=== PATIENT | female | born 1990 | race Caucasian/White ===

== ENCOUNTER 2023-02-10 19:56 | Emergency (ER) | payer OTHER ==
[~2023-02-10] VITALS: Ht 177.8 cm; Wt 79.8 kg
[2023-02-10] MEDS ORDERED: FAMO10TA41 PO (20:10)
[2023-02-10] MEDS ORDERED: DULO20CA PO (20:10)
[2023-02-10] MEDS ORDERED: SEMA1PEN SQ (20:10)
[2023-02-10] MEDS ORDERED: ARIP2TAB3 PO (20:10)
[2023-02-10] MEDS ORDERED: PANT40TA2 PO (20:10)
[2023-02-10] MEDS ORDERED: HYDROMORPHONE 1 MG/1 ML DISP.SYRIN ONE ×2 (20:21→21:36)
[2023-02-10] MEDS ORDERED: diphenhydrAMINE 50 MG/1 ML VIAL ONE (20:21)
[2023-02-10] MEDS ORDERED: METOCLOPRAMIDE HCL 10 MG/2 ML VIAL ONE (20:21)
[2023-02-10] MEDS ORDERED: diphenhydrAMINE 50 MG/1 ML VIAL IV ONE (20:45)
[2023-02-10] MEDS ORDERED: HYDROMORPHONE 1 MG/1 ML DISP.SYRIN IV ONE ×2 (20:45→21:45)
[2023-02-10] MEDS ORDERED: IV NORMAL SALINE 1000 ML BAG IV ONE ×2 (20:45→21:15)
[2023-02-10] MEDS ORDERED: METOCLOPRAMIDE HCL 10 MG/2 ML VIAL IV ONE (20:45)
[2023-02-10 20:52] LABS: HEMOGLOBIN 15.5 g/dL (10.9-14.3); MEAN CORPUSCULAR HEMOGLOBIN 28.5 uug (24.7-32.8); WHITE BLOOD COUNT (AUTO) 17.3 K/uL (3.8-11.8)
[2023-02-10 20:53] LABS: CALCIUM 11.3 mg/dL (8.5-10.1); CREATININE 1.3 mg/dL (0.6-1.3); POTASSIUM 3.5 mmol/L (3.5-5.1)
[2023-02-10 20:56] LABS: BASOPHILS # (AUTO) 0.1 K/UL (0.0-0.2); BASOPHILS % (AUTO) 0.4 % (0.0-2.0); DIFFERENTIAL COMMENT 1; EOSINOPHILS # (AUTO) 0.2 K/uL (0.0-0.7); EOSINOPHILS % (AUTO) 0.9 % (0.0-7.0); HEMATOCRIT 47.8 % (31.2-41.9); LYMPHOCYTES # (AUTO) 2.8 K/uL (0.8-4.8); MEAN CORPUSCULAR HGB CONC 33 g/dL (32.3-35.6); MEAN CORPUSCULAR VOLUME 87.7 fL (75.5-95.3); MONOCYTES # (AUTO) 0.8 K/uL (0.1-1.30); MONOCYTES % (AUTO) 4.3 % (0.0-11.0); NEUTROPHILS # (AUTO) 13.6 K/uL (1.8-8.9); NEUTROPHILS % (AUTO) 78.4 % (38.5-71.5); PLATELET COUNT (AUTO) 423 K/uL (179-408); RED BLOOD CELL COUNT(AUTO) 5.45 MIL/uL (3.63-4.92); RED CELL DISTRIBUTION WIDTH 13.7 % (12.3-17.7)
[2023-02-10 20:59] LABS: ALBUMIN 4.9 g/dL (3.4-5.0); BILIRUBIN,DIRECT 0.2 mg/dL (0.0-0.2); BILIRUBIN,TOTAL 0.7 mg/dL (0.2-1.0); TOTAL PROTEIN, SERUM 9.4 g/dL (6.4-8.2)
[2023-02-10 21:26] LABS: *BLOOD, URINE NEGATIVE (NEGATIVE); *COLOR,URINE AMBER (YELLOW); *KETONES,URINE 2+ (NEGATIVE); *PROTEIN,URINE 2+ (NEGATIVE); LEUKOCYTE ESTERASE ,URINE NEGATIVE (NEGATIVE); NITRITE, URINE NEGATIVE (NEGATIVE); UGLUCOSE NEGATIVE (NEGATIVE)
[2023-02-10 21:27] LABS: *BILIRUBIN,URIN 3+ (NEGATIVE)
[2023-02-10 21:37] LABS: *CLARITY,URINE HAZY (CLEAR); BACTERIA,URINE FEW /HPF (NONE SEEN); SQUAMOUS EPITHELIAL CELL,UR FEW /HPF (NONE SEEN); TRIPLE PHOSPHATE CRYSTAL,UR FEW /HPF (NONE SEEN)
[2023-02-10] MEDS ORDERED: ONDANSETRON 4 MG/2 ML VIAL ONE (22:11)
[2023-02-10] MEDS ORDERED: ONDANSETRON 4 MG/2 ML VIAL IV ONE (22:15)
[2023-02-10 23:03] VITALS: BP 102/62; O2SAT 97
== END 2023-02-10 23:03 | disposition home or self-care (01) ==
LOC: ER 20:22
DX: R10.30 Lower abdominal pain, unspecified (principal); R10.2 Pelvic and perineal pain; R11.2 Nausea with vomiting, unspecified; G89.4 Chronic pain syndrome; Q79.60 Ehlers-Danlos syndrome, unspecified; E78.5 Hyperlipidemia, unspecified; Z90.49 Acquired absence of other specified parts of digestive tract; Z79.899 Other long term (current) drug therapy
CPT/HCPCS: 99285; 74176; 96374; 96375; 76705; 96361; 80076; 80048; 81001; 83690; 85025; 84702; 36415; 96376; J1200; J2765; J2405; J1170 ×2; J7040 ×2; A4606; A4663